=== PATIENT | female | born 1975 | race American Indian/Alaskan Native ===

== ENCOUNTER 2016-12-19 20:28 | Emergency (ER) | payer OTHER ==
[2016-12-19 21:00] VITALS: BP 179/82
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
[2016-12-19] MEDS ORDERED: MARCAINE 0.5% INFILTRATI ONE (22:28)
[2016-12-19] MEDS ORDERED: KEFLEX PO ONE (22:28)
[2016-12-19] MEDS ORDERED: NORCO 5/325 PO ONE (22:28)
[2016-12-19] MEDS ORDERED: BOOSTRIX IM ONE (22:28)
[2016-12-19] MEDS ORDERED: NACL 0.9% IR ONE (22:29)
== END 2016-12-20 01:00 | disposition home or self-care (01) ==
LOC: ED 20:28
DX: S61.412A Laceration without foreign body of left hand, initial encounter (principal); R07.89 Other chest pain; S50.812A Abrasion of left forearm, initial encounter; S50.811A Abrasion of right forearm, initial encounter; S50.311A Abrasion of right elbow, initial encounter; S00.81XA Abrasion of other part of head, initial encounter; V49.59XA Passenger injured in collision with other motor vehicles in traffic accident, initial encounter; Y93.9 Activity, unspecified; Y92.89 Other specified places as the place of occurrence of the external cause; Y99.9 Unspecified external cause status
CPT/HCPCS: 71020; 90471; 90715; 93005; 93010

== ENCOUNTER 2017-01-01 13:47 | Emergency (ER) | payer OTHER ==
[2017-01-01 14:14] VITALS: BP 149/87
--- NOTE | 2017-01-01 14:27 | Emergency Department Report ---
Suture/Staple Removal - HPI Chief Complaint: Laceration/Recheck/Suture Stated Complaint: STUT REMOVAL Time Seen by Provider: 01/01/17 14:22 When Sutures or [place] Placed: 11-14 Days Ago Wound Location: left hand ED Review of Systems ROS: Stated complaint: STUT REMOVAL Other details as noted in HPI Comment: All other systems reviewed and negative Constitutional: no symptoms reported. denies: chills, diaphoresis, fever, malaise, weakness Skin: other (left hand healed laceration). denies: rash, lesions, change in color, change in hair/nails, pruritus ED Past Medical Hx - Social History Smoking Status: Never Smoker Substance Use Type: None - Medications Home Medications: Home Medications Medication Instructions Recorded Confirmed Last Taken Type Cyclobenzaprine [Flexeril] 10 mg PO TID PRN #15 tablet 12/20/16 Unknown Rx Ibuprofen [Motrin] 600 mg PO Q8H PRN #15 tablet 12/20/16 Unknown Rx Suture Removal Exam - Exam General: Vital signs noted. No distress. Alert and acting appropriately. 3 cm healed laceration on the left 1 st and 2nd MCP joint, no drainage, no wound dehiscence , no erythema, no edema. Wound: No Pathologic Erythema, No Tenderness, No Drainage, No Pus, No Wound Dehiscence Other Systems: All other systems reviewed and are unremarkable. ED Course Vital Signs 01/01/17 14:10 Temperature 98 F Pulse Rate 119 H Respiratory 18 Rate Blood Pressure 149/87 O2 Sat by Pulse 100 Oximetry ED Recheck MDM - Differential Diagnosis Wound Recheck, Cellultitis Recheck, Suture/Staple Removal, Wound Dehiscence - Medical Decision Making patient was in NAD, laceration is completely healed, no drainage, no erythema, no wound wound dehiscence. prolene sutures were removed, it was a running stitch. Critical care attestation.: If time is entered above; I have spent that time in minutes in the direct care of this critically ill patient, excluding procedure time. ED Disposition Clinical Impression: Visit for suture removal Disposition: DC-01 TO HOME OR SELFCARE Is pt being admited?: No Does the pt Need Aspirin: No Condition: Good Referrals: PRIMARY CARE, [Primary Care Provider] - 3-5 Days Time of Disposition: 14:23
== END 2017-01-01 14:33 | disposition home or self-care (01) ==
LOC: ED 13:47
DX: S61.412D Laceration without foreign body of left hand, subsequent encounter (principal); X58.XXXD Exposure to other specified factors, subsequent encounter